=== PATIENT | female | born 1985 | race Caucasian/White ===

== ENCOUNTER → 2021-07-20 08:32 | Outpatient (CLI) | payer OTHER, SELFPAY ==
--- NOTE | ~2021-07-20 | MMUS_ITS ---
EXAMINATION: MM diagnostic brittney BI w sylvester, US breast RT limited HISTORY: Palpable right breast abnormality. TECHNIQUE: Additional 3-D tomosynthesis images of the breasts were performed and synthetic 2-D images were generated. CAD analysis was submitted and interpreted. High resolution Limited right breast ult rasound was performed. COMPARISON: None BREAST PARENCHYMAL COMPOSITION: The breasts are extremely dense, which lowers the sensitivity of mamm ography FINDINGS: MAMMOGRAPHIC FINDINGS: There are no suspicious masses, calcifications or architectural distortion in either breast to sugges t malignancy. ULTRASOUND: Limited right breast ultrasound: In the area of palpable concern there is a 5 mm simple cyst. There i s an adjacent cluster of 3 cysts at 11:00 near the areola measuring up to 3 mm maximum dimension. No suspicious masses to suggest malignancy. IMPRESSION: 1. No evidence for malignancy in either breast. Benign cysts in the area of palpable concern in the r ight breast. 2. Recommend follow-up screening bilateral mammogram at age 41. BI-RADS Category 2: Benign finding(s). Reviewed, dictated and finalized at location A. IMPRESSION: 1. No evidence for malignancy in either breast. Benign cysts in the area of pal pable concern in the right breast. 2. Recommend follow-up screening bilateral mammogram at age 41. BI-RADS Category 2: Benign finding(s).
== END ==
PROVIDERS: PCP Nurse Practitioner Family; Visit Provider Nurse Practitioner
DX: N60.11 Diffuse cystic mastopathy of right breast (principal)
CPT/HCPCS: 76642; 77062; 77066; G0279